=== PATIENT | female | born 1990 | race Caucasian/White ===

== ENCOUNTER 2018-04-27 15:53 | Emergency (ER) | payer OTHER ==
[~2018-04-27] VITALS: Ht 170.2 cm; Wt 88.9 kg
--- NOTE | ~2018-04-27 | EKG ---
[address] [place] [address] ELECTROCARDIOGRAM REPORT Name: SIMRAN INGRAMN Room #: [facility] [id number] Admission: 04/27/18 Attend Phys: Discharge: 04/27/18 Date of : 89 Report #: [id number] THIS REPORT FOR: //name// [facility] ED Test Date: 2018-04-27 Test Time: 16:02:11 Pat Name: MARKUS INGRAM Department: Room: Gender: F [employer]: Charity COLLAZO : 1990 Requested By: Zaid Colvin Order Number: [id number] MD: Bart Butterfield Measurements Intervals [place] Rate: 63 P: 11 ID: [id number] QRS: -12 QRSD: 102 T: 32 QT: 432 QTc: 443 Interpretive Statements Sinus rhythm Normal tracing No previous ECG available for comparison Electronically Signed On 04-28-2018 7:46:37 CDT by Bart Butterfield [email or web address] <ELECTRONICALLY SIGNED> By: Bart Butterfield MD, [facility] 04/28/18 0746 1602 1602 Bart Butterfield MD, FACC /EPI
[2018-04-27 17:05] LABS: URINE BILIRUBIN NEGATIVE (Negative); URINE BLOOD NEGATIVE (Negative); URINE CLARITY CLEAR; URINE COLOR YELLOW; URINE GLUCOSE-RANDOM* NEGATIVE (Negative); URINE KETONES NEGATIVE (Negative); URINE NITRITE-REFLEX NEGATIVE (Negative); URINE PROTEIN (DIPSTICK) NEGATIVE (Negative); URINE UROBILINOGEN 0.2 E.U./dl (0.2-1.0)
[2018-04-27 17:08] LABS: ABSOLUTE NEUTROPHILS 8.2 thou/uL (1.4-8.2); BASOPHILS 0.5 % (0.0-2.0); EOSINOPHILS 0.9 % (0.0-3.0); HEMATOCRIT 40.5 % (37.0-47.0); HEMOGLOBIN 13.8 gm/dL (12.0-15.0); LYMPHOCYTES 16.5 % (24.0-44.0); MCV 85.4 fL (80.0-100.0); PLATELET COUNT 265 thou/uL (150-400); POLYS 77.1 % (36.0-66.0); RBC 4.74 mil/uL (4.20-5.00); RDW 13.4 % (10.5-14.5); WBC 10.7 thou/uL (4.0-11.0)
[2018-04-27 17:11] LABS: URINE LEUKOCYTES-REFLEX 1+ (Negative)
[2018-04-27 17:16] LABS: SQUAMOUS 0-3 Few /LPF (0-3)
[2018-04-27 17:17] LABS: CALCIUM 9.6 mg/dL (8.5-10.1); CREATININE 0.8 mg/dL (0.6-1.0); POTASSIUM 3.7 mmol/L (3.5-5.1)
[2018-04-27 17:17] LABS: BACTERIA-REFLEX 1-9 Few /HPF (None Seen); CASTS None Seen /LPF (None Seen); CRYSTALS None Seen /LPF (None Seen); URINE RBC None Seen /HPF (0-2); URINE WBC-REFLEX 0-5 Rare /HPF (0-5)
[2018-04-27 17:23] LABS: ALBUMIN 3.9 g/dL (3.4-5.0); TOTAL BILIRUBIN 1.4 mg/dL (<0.1-1.0); TOTAL PROTEIN 7.6 g/dL (6.4-8.2)
[2018-04-27] MEDS ORDERED: NORCO 5-325 TA1 EACH PO (17:44)
[2018-04-27] MEDS ORDERED: ZOFRAN ODT4 MG PO (17:44)
[2018-04-27 17:55] VITALS: BP 117/83
== END 2018-04-27 17:56 | disposition home or self-care (01) ==
LOC: ER 15:53
PROVIDERS: Emergency Medicine
DX: K80.50 Calculus of bile duct without cholangitis or cholecystitis without obstruction (principal); R42 Dizziness and giddiness